=== PATIENT | male | born 2005 | race Caucasian/White ===

== ENCOUNTER 2024-06-14 11:28 | Emergency (ER) | payer MEDICAID, OTHER ==
[~2024-06-14] VITALS: Ht 180.3 cm; Wt 100.0 kg
[2024-06-14 11:32] VITALS: PULSE 108; O2SAT 98
[2024-06-14 11:42] VITALS: BP 127/84; RESP 18; TEMP 98.7; O2SAT 100
[2024-06-14] MEDS ORDERED: HYDROCODONE/ACETAMINOPHEN 5/325MG TABLET PO ONE (12:15)
[2024-06-14] MEDS ORDERED: HYDR-4001 MT (12:18)
[2024-06-14] MEDS ORDERED: CIPR-263 MT (12:18)
== END 2024-06-14 12:47 | disposition home or self-care (01) ==
LOC: ER 11:28
DX: K62.89 Other specified diseases of anus and rectum (principal)
CPT/HCPCS: 99283

== ENCOUNTER 2024-06-17 11:44 | Emergency (ER) | payer MEDICAID ==
[~2024-06-17] VITALS: Ht 177.8 cm; Wt 81.0 kg
[~2024-06-17 11:44] MED LIST: CIPR-263 MT; HYDR-4001 MT
[2024-06-17 11:54] VITALS: BP 132/84; PULSE 72; RESP 18; TEMP 98.3; O2SAT 98
== END 2024-06-17 15:06 | disposition home or self-care (01) ==
LOC: ER 11:44
DX: K61.0 Anal abscess (principal); Z48.00 Encounter for change or removal of nonsurgical wound dressing; Z88.2 Allergy status to sulfonamides
CPT/HCPCS: 99281

== ENCOUNTER 2024-09-15 15:34 | Emergency (ER) | payer OTHER ==
[~2024-09-15] VITALS: Ht 177.8 cm; Wt 95.0 kg
[2024-09-15 15:48] VITALS: O2SAT 100
[2024-09-15] MEDS ORDERED: IBUP-2030 MT (19:08)
[2024-09-15] MEDS ORDERED: AMOX1TAB16 MT (19:08)
[2024-09-15 19:26] VITALS: BP 126/82; PULSE 82; RESP 16; TEMP 36.94740; O2SAT 99
== END 2024-09-15 19:26 | disposition home or self-care (01) ==
LOC: ER 15:34
DX: J32.9 Chronic sinusitis, unspecified (principal); Z88.2 Allergy status to sulfonamides; Z79.899 Other long term (current) drug therapy
CPT/HCPCS: 99283

== ENCOUNTER 2025-09-18 06:25 | Emergency (ER) | payer SELFPAY ==
[~2025-09-18] VITALS: Ht 177.8 cm; Wt 107.0 kg
[~2025-09-18 06:25] MED LIST changes: +AMOX1TAB16 MT; +IBUP-2030 MT
[2025-09-18 06:31] VITALS: O2SAT 98
[2025-09-18] MEDS: IBUPROFEN 600MG TABLET PO ONE (07:16)
[2025-09-18] MEDS ORDERED: NAPR-420 MT (08:30)
[2025-09-18 08:40] VITALS: BP 118/68; PULSE 71; RESP 18; TEMP 36.8; O2SAT 98
== END 2025-09-18 08:45 | disposition home or self-care (01) ==
LOC: ER 06:25
DX: S99.911A Unspecified injury of right ankle, initial encounter (principal); G89.11 Acute pain due to trauma; Z88.2 Allergy status to sulfonamides; X58.XXXA Exposure to other specified factors, initial encounter; Y93.89 Activity, other specified; Y92.89 Other specified places as the place of occurrence of the external cause; Y99.9 Unspecified external cause status
CPT/HCPCS: 73610; 73630; 99284